=== PATIENT | male | born 1995 | race Caucasian/White ===

== ENCOUNTER 2017-12-13 19:24 | Emergency (ER) | payer OTHER ==
--- NOTE | 2017-12-13 19:37 | ER Report ---
History and Physical Time Seen By MD: 19:36 Hx. of Stated Complaint: patient having cough for the last days, fever, congestion. patient states coughing up blood tinged mucus. HPI/ROS CHIEF COMPLAINT: Cough, shortness breath HISTORY OF PRESENT ILLNESS: 22-year-old male patient presents to emergency room with complaint of cough and shortness of breath. Patient states that he has been having a cough for the past 10 days. He states that over the last 36 hours he's been coughing up blood-tinged mucus. He states that he is eating and drinking well, but states he's not been able to work out. He denies having fever but s tates he has had chills. He states he was lying in bed and was wearing sweats and was sweating profusely. He denies any abdominal pain, chest pain. He states that he is had a high heart rate for several weeks stating that he's been turned away from [facility] for having elevated heart rate. REVIEW OF SYSTEMS: Respiratory: As noted above Cardiovascular: No chest pain, no palpitations. Gastrointestinal: No vomiting, no abdominal pain. Musculoskeletal: No back pain. Allergies: Coded Allergies: No Known Drug Allergies (Unverified , 12/13/17) Home Meds Active Scripts Promethazine HCl/Codeine (Prometh-Codein 6.25-10 mg/5 ml) 5 Ml Syrup, 1 TSP PO QHS PRN for COUGH, #120 ML Prov:ELENITA MADISON [facility] 12/13/17 Azithromycin 250 Mg Tab (AZITHROMYCIN 250 MG TAB) 250 Mg Tablet, 1 TAB PO QDAY, #4 TAB Prov:ELENITA MADISON [facility] 12/13/17 Past Medical/Surgical History Patient has a past medical history of concussion, reflux, deviated septum. Patient has surgical history of a tear duct repair as a child. Reviewed Nurses Notes: Yes Constitutional Vital Sign - Last 24 Hours 12/13/17 12/13/17 12/13/17 12/13/17 19:27 19:30 19:39 19:54 Temp 99.5 Pulse 124 127 122 Resp 24 B/P (MAP) 152/91 111/84 (93) Pulse Ox 90 92 92 O2 Delivery Room Air 12/13/17 12/13/17 12/13/17 12/13/17 20:00 20:09 20:24 20:30 Pulse 101 102 B/P (MAP) 124/99 (107) 114/104 (107) Pulse Ox 90 91 12/13/17 12/13/17 12/13/17 12/13/17 20:39 20:44 20:59 21:00 Pulse 101 101 99 B/P (MAP) 125/81 (96) Pulse Ox 91 91 91 12/13/17 12/13/17 12/13/17 12/13/17 21:14 21:29 21:30 21:44 Pulse 99 99 118 B/P (MAP) 135/90 (105) Pulse Ox 92 92 94 Physical Exam General Appearance: The patient is alert, has no immediate need for airway protection and no current signs of toxicity. Respiratory: Chest is non tender, lungs are clear to auscultation. Cardiac: regular rhythm, patient is tachycardic. Gastrointestinal: Abdomen is soft and non tender, no masses, bowel sounds normal. Musculoskeletal: Neck: Neck is supple and non tender. Extremities have full range of motion and are non tender. Skin: No rashes or lesions. DIFFERENTIAL DIAGNOSIS: After history and physical exam differential diagnosis was considered for shortness of breath including but not limited to pulmonary infectious process, COPD, asthma, pulmonary embolus and congestive heart failure. Medical Decision Making Data Points Result Diagram: 12/13/17195612/13/171956 Laboratory Hematology Test 12/13/17 19:55 12/13/17 19:57 Influenza Virus Type A (PCR) Negative (NEGATIVE) Influenza Virus Type B (PCR) Negative (NEGATIVE) Red Blood Count 5.65 M/uL (4.00-5.60) Mean Corpuscular Volume 88.8 fL (80.0-96.0) Mean Corpuscular Hemoglobin 31.0 pg (26.0-33.0) Mean Corpuscular Hemoglobin Concent 34.9 g/dL (32.0-36.0) Red Cell Distribution Width 12.3 % (11.5-14.5) Mean Platelet Volume 8.4 fL (7.2-11.1) Neutrophils (%) (Auto) 71.2 % (39.4-72.5) Lymphocytes (%) (Auto) 17.0 % (17.6-49.6) Monocytes (%) (Auto) 10.5 % (4.1-12.4) Eosinophils (%) (Auto) 0.5 % (0.4-6.7) Basophils (%) (Auto) 0.8 % (0.3-1.4) Nucleated RBC Relative Count (auto) 0.1 /100WBC Neutrophils # (Auto) 9.0 K/uL (2.0-7.4) Lymphocytes # (Auto) 2.1 K/uL (1.3-3.6) Monocytes # (Auto) 1.3 K/uL (0.3-1.0) Eosinophils # (Auto) 0.1 K/uL (0.0-0.5) Basophils # (Auto) 0.1 K/uL (0.0-0.1) Nucleated RBC Absolute Count (auto) 0.02 K/uL D-Dimer Quantitative (PE/DVT) 0.61 ug/ml (0-0.50) Sodium Level 137 mmol/L (137-145) Potassium Level 4.2 mmol/L (3.5-5.0) Chloride Level 95 mmol/L (98-107) Carbon Dioxide Level 29 mmol/L (22-30) Blood Urea Nitrogen 14 mg/dl (9-21) Creatinine 1.10 mg/dl (0.66-1.25) Glomerular Filtration Rate Calc > 60.0 Random Glucose 105 mg/dl (75-110) Calcium Level 9.1 mg/dl (8.4-10.2) Total Bilirubin 1.0 mg/dl (0.2-1.3) Aspartate Amino Transf (AST/SGOT) 47 U/L (0-35) Alanine Aminotransferase (ALT/SGPT) 83 U/L (0-56) Alkaline Phosphatase 106 U/L (0-126) Total Protein 7.8 g/dl (6.3-8.2) Albumin 4.3 g/dl (3.5-5.0) Chemistry Test 12/13/17 19:55 12/13/17 19:57 Influenza Virus Type A (PCR) Negative (NEGATIVE) Influenza Virus Type B (PCR) Negative (NEGATIVE) White Blood Count 12.7 k/uL (4.5-11.0) Red Blood Count 5.65 M/uL (4.00-5.60) Hemoglobin 17.5 g/dL (14.0-18.0) Hematocrit 50.2 % (42.0-52.0) Mean Corpuscular Volume 88.8 fL (80.0-96.0) Mean Corpuscular Hemoglobin 31.0 pg (26.0-33.0) Mean Corpuscular Hemoglobin Concent 34.9 g/dL (32.0-36.0) Red Cell Distribution Width 12.3 % (11.5-14.5) Platelet Count 268 K/uL (150-450) Mean Platelet Volume 8.4 fL (7.2-11.1) Neutrophils (%) (Auto) 71.2 % (39.4-72.5) Lymphocytes (%) (Auto) 17.0 % (17.6-49.6) Monocytes (%) (Auto) 10.5 % (4.1-12.4) Eosinophils (%) (Auto) 0.5 % (0.4-6.7) Basophils (%) (Auto) 0.8 % (0.3-1.4) Nucleated RBC Relative Count (auto) 0.1 /100WBC Neutrophils # (Auto) 9.0 K/uL (2.0-7.4) Lymphocytes # (Auto) 2.1 K/uL (1.3-3.6) Monocytes # (Auto) 1.3 K/uL (0.3-1.0) Eosinophils # (Auto) 0.1 K/uL (0.0-0.5) Basophils # (Auto) 0.1 K/uL (0.0-0.1) Nucleated RBC Absolute Count (auto) 0.02 K/uL D-Dimer Quantitative (PE/DVT) 0.61 ug/ml (0-0.50) Glomerular Filtration Rate Calc > 60.0 Calcium Level 9.1 mg/dl (8.4-10.2) Total Bilirubin 1.0 mg/dl (0.2-1.3) Aspartate Amino Transf (AST/SGOT) 47 U/L (0-35) Alanine Aminotransferase (ALT/SGPT) 83 U/L (0-56) Alkaline Phosphatase 106 U/L (0-126) Total Protein 7.8 g/dl (6.3-8.2) Albumin 4.3 g/dl (3.5-5.0) Coagulation Test 12/13/17 19:57 D-Dimer Quantitative (PE/DVT) 0.61 ug/ml EKG/Imaging Imaging CT angiogram of the chest: Indication: Cough and dyspnea. Elevated d-dimer. Technique: Helical CT was performed through the chest following IV contrast enhancement with 75 cc of Isovue 370. Multiplanar reconstructions and MIP images are reviewed. One of the following dose optimization techniques was utilized in the per formance of this exam: Automated exposure control; adjustment of the mA and/or kV according to the patient's size; or use of an iterative reconstruction technique. Specific details can be referenced in the facility's radiology CT exam operational policy. Comparison: None. Pulmonary arteries: There is uniform contrast enhancement. There are no signs of pulmonary emboli. Aorta and great vessels: There is uniform contrast enhancement. There are no signs of dissection or aneurysm. Heart and pericardial soft tissues: Within normal limits. Mediastinal soft tissues: Unremarkable. Lung ahmadi: There is a small area of parenchymal consolidation in the left upper lobe, most likely representing acute pneumonia. No additional parenchymal opacities are identified. Pleural spaces: There is no evidence of effusion, focal pleural thickening, or pneumothorax. Skeletal structures: Well mineralized and intact. No acute skeletal deformity is identified. Upper abdomen: Unremarkable. IMPRESSION: There is a small area of consolidation in the left upper lobe, most likely representing acute pneumonia. The lungs are otherwise clear. There are no signs of pulmonary emboli. Report Dictated By: Lowell Ward MD at 12/13/2017 9:14 PM Report E-Signed By: Lowell Ward MD at 12/13/2017 9:25 PM Examination: CHEST PA AND LAT Comparison: None. History: Shortness of breath. Coughing up blood. Findings: Questionable small consolidation in the left suprahilar lung. No pneumothorax, edema, or effusion. Cardiac silhouette size is normal. Osseous structures are intact. IMPRESSION: Questionable small consolidation in the left suprahilar lung. Correlation with any evidence of a pneumonia is recommended. Report Dictated By: Richar Kirby MD at 12/13/2017 8:33 PM Report E-Signed By: Richar Kirby MD at 12/13/2017 8:36 PM ED Course/Re-evaluation ED Course Patient was admitted to exam room, history and physical were obtained. Differential diagnoses were considered. On examination lungs are clear, heart regular, abdomen is soft and nontender. A CBC, CMP, d-dimer were done. Patient had a white count of 12.7, there was no left shift. Patient did have a elevated d-dimer of 0.61. Chest x-ray was done which showed consolidation in the left upper lobe. Due to the elevated d-dimer a CT scan of the chest was done which did confirm the pneumonia in the left upper lobe. I discussed the results with the patient and his parents. I discussed treatment with azithromycin, albuterol inhaler, cough syrup to help him sleep tonight. He is to return to the emergency room if condition worsens. He is to follow-up with her primary care provider if condition persists. I discussed with patient who verbalized understanding and agreement with plan. Decision to Disposition Date: Dec 13, 2017 Decision to Disposition Time: 21:54 Depart Departure Latest Vital Signs Vital Signs Date Time Temp Pulse Resp B/P (MAP) Pulse Ox O2 Delivery O2 Flow Rate FiO2 12/13/17 21:44 118 94 12/13/17 21:30 135/90 (105) 12/13/17 19:27 99.5 24 Room Air Impression: Primary Impression: Community acquired bacterial pneumonia Condition: Improved Disposition: HOME OR SELF-CARE New Scripts Promethazine HCl/Codeine (Prometh-Codein 6.25-10 mg/5 ml) 5 Ml Syrup 1 TSP PO QHS PRN for COUGH, #120 ML Prov: ELENITA MADISON 12/13/17 Azithromycin 250 Mg Tab (AZITHROMYCIN 250 MG TAB) 250 Mg Tablet 1 TAB PO QDAY, #4 TAB Prov: ELENITA MADISON 12/13/17 Patient Instructions: Community Acquired Pneumonia (ED) Additional Instructions: Increase fluid intake. Get plenty of rest. Consider taking the next couple of days off of work. Return to the ER if condition worsens or you have no improvement in the next 48- 72 hours. Humidify the air that you have in your apartment. Take medication as prescribed. ELENITA MADISON Dec 13, 2017 19:37
[2017-12-13 20:09] LABS: PLATELET COUNT, AUTOMATED 268 K/uL (150-450)
--- NOTE | 2017-12-13 20:39 | RADIOLOGY IMAGING REPORT ---
FACILITY: [facility] PATIENT NAME: Noble Hassan : 1995 MR: [id number] V: [id number] EXAM DATE: ORDERING PHYSICIAN: ELENITA MADISON TECHNOLOGIST: Location: [facility] [place] Patient: Noble Hassan : 1995 Visit/Account:[id number] Date of Sevice: 12/13/2017 Examination: CHEST PA AND LAT Comparison: None. History: Shortness of breath. Coughing up blood. Findings: Questionable small consolidation in the left suprahilar lung. No pneumothorax, edema, or e ffusion. Cardiac silhouette size is normal. Osseous structures are intact. IMPRESSION: Questionable small consolidation in the left suprahilar lung. Correlation with any evidence of a pne umonia is recommended. Report Dictated By: Richar Kirby MD at 12/13/2017 8:33 PM Report E-Signed By: Richar Kirby MD at 12/13/2017 8:36 PM [id number]
[2017-12-13] MEDS ORDERED: NS(*) 0.9% 1000 ML BAG 1,000 ML IV ONE (20:50)
[2017-12-13] MEDS ORDERED: NS(*) 0.9% 50 ML BAG 50 ML ONE (20:51)
[2017-12-13] MEDS ORDERED: IOPAMIDOL 76% 75 ML INFUS BTL 75 ML ONE (20:51)
--- NOTE | 2017-12-13 21:30 | RADIOLOGY IMAGING REPORT ---
[facility] PATIENT NAME: Noble Hassan : 1995 MR: [id number] V: [id number] EXAM DATE: ORDERING PHYSICIAN: ELENITA MADISON TECHNOLOGIST: [place] [facility] [place] : 1995 Visit/Account:[id number] Date of Sevice: 12/13/2017 CT angiogram of the chest: Indication: Cough and dyspnea. Elevated d-dimer. Technique: Helical CT was performed through the chest following IV contrast enhancement with 75 cc of Isovue 370. Multiplanar reconstructions and MIP images are reviewed. One of the following dose optimization techniques was utilized in the performance of this exam: Autom ated exposure control; adjustment of the mA and/or kV according to the patient's size; or use of an i terative reconstruction technique. Specific details can be referenced in the facility's radiology CT exam operational policy. Comparison: None. Pulmonary arteries: There is uniform contrast enhancement. There are no signs of pulmonary emboli. Aorta and great vessels: There is uniform contrast enhancement. There are no signs of dissection or a neurysm. Heart and pericardial soft tissues: Within normal limits. Mediastinal soft tissues: Unremarkable. Lung ahmadi: There is a small area of parenchymal consolidation in the left upper lobe, most likely r epresenting acute pneumonia. No additional parenchymal opacities are identified. Pleural spaces: There is no evidence of effusion, focal pleural thickening, or pneumothorax. Skeletal structures: Well mineralized and intact. No acute skeletal deformity is identified. Upper abdomen: Unremarkable. IMPRESSION: There is a small area of consolidation in the left upper lobe, most likely representing a cute pneumonia. The lungs are otherwise clear. There are no signs of pulmonary emboli. Report Dictated By: Lowell Ward MD at 12/13/2017 9:14 PM Report E-Signed By: Lowell Ward MD at 12/13/2017 9:25 PM WSN:[id number]
[2017-12-13] MEDS ORDERED: AZIT-18 PO (21:51)
[2017-12-13] MEDS ORDERED: PROM5SYR PO (21:51)
[2017-12-13] MEDS ORDERED: ALBUTEROL 8 GM INHALER INH ONE (21:55)
[2017-12-13] MEDS ORDERED: AZITHROMYCIN 250 MG TAB PO ONE (21:55)
[2017-12-13] MEDS ORDERED: PROMETH/COD SYRP 6.25-10MG/5ML PO ONE (21:55)
[2017-12-13 22:00] VITALS: BP 132/79
== END 2017-12-13 22:20 | disposition home or self-care (01) ==
LOC: ER 19:44
DX: J15.9 Unspecified bacterial pneumonia (principal)
CPT/HCPCS: 85025; 85379; 87502; 96360; 99284; J3535; J7030; J7050; Q0144; Q9967; 71046; 71275; 82040; 82247; 82310; 82374; 82435; 82565; 82947; 84075; 84132; 84155; 84295; 84450; 84460; 84520

== ENCOUNTER 2017-12-18 12:56 | Emergency (ER) | payer OTHER ==
[~2017-12-18 12:56] MED LIST changes: -AMOX-559 PO; -FLU60VIA41 IM; -GUAI-206 PO
--- NOTE | 2017-12-18 13:31 | ER Report ---
History and Physical Time Seen By MD: 13:30 Hx. of Stated Complaint: PT DX WITH PNEUMONIA ON MONDAY, STILL NOT FEELING BETTER TODAY, NEW [place]OWN AND UNABLE TO GET ESTABLISHED WITH PCP HPI/ROS dignosed with pneumonia on mon, finished zpack and is no better fever chills sob Allergies: Coded Allergies: No Known Drug Allergies (Unverified , 12/18/17) Home Meds Discontinued Scripts Promethazine HCl/Codeine (Prometh-Codein 6.25-10 mg/5 ml) 5 Ml Syrup, 1 TSP PO QHS PRN for COUGH, #120 ML Prov:LOSELENITA FNP 12/13/17 Azithromycin 250 Mg Tab (AZITHROMYCIN 250 MG TAB) 250 Mg Tablet, 1 TAB PO QDAY, #4 TAB Prov:MARLO MADISONE IAP DISPLAYS ANALYST 12/13/17 Past Medical/Surgical History Negative 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 Resp 16 B/P (MAP) 145/80 (101) 12/18/17 12/18/17 12/18/17 12/18/17 14:18 14:30 14:45 14:56 Pulse 104 B/P (MAP) ???/??? (1665) 133/94 (107) 139/80 (99) Pulse Ox 92 12/18/17 12/18/17 12/18/17 12/18/17 15:00 15:15 15:20 15:30 Pulse ??? B/P (MAP) 126/82 (97) 128/84 (99) 117/80 (92) 10/2212/18/17 12/18/17 12/18/17 15:45 15:50 16:00 16:15 Pulse 99 B/P (MAP) 122/76 (91) 113/78 (90) 108/93 (98) Pulse Ox 92 12/18/17 12/18/17 12/18/17 12/18/17 16:20 16:30 16:45 16:50 Pulse 119 92 B/P (MAP) 130/96 (107) 123/83 (96) Pulse Ox 91 92 12/18/17 12/18/17 17:00 17:15 B/P (MAP) 125/79 (94) 130/85 (100) Physical Exam 22 year old male mild distress, head normocephalic and atraumatic , tm non reddened , throat slightly reddened, hr tachy no murmurs rubs and gallops, lungs crackles left upper lobe, abdomen soft, anguiano Medical Decision Making Data Points Result Diagram: 12/18/17 1401 12/18/17 1401 Laboratory Hematology Test 12/18/17 14:01 12/18/17 14:06 12/18/17 14:32 12/18/17 15:19 Red Blood Count 5.48 M/uL (4.00-5.60) Mean Corpuscular Volume 88.4 fL (80.0-96.0) Mean Corpuscular Hemoglobin 30.5 pg (26.0-33.0) Mean Corpuscular Hemoglobin Concent 34.5 g/dL (32.0-36.0) Red Cell Distribution Width 12.1 % (11.5-14.5) Mean Platelet Volume 7.9 fL (7.2-11.1) Neutrophils (%) (Auto) 77.0 % (39.4-72.5) Lymphocytes (%) (Auto) 12.7 % (17.6-49.6) Monocytes (%) (Auto) 9.6 % (4.1-12.4) Eosinophils (%) (Auto) 0.1 % (0.4-6.7) Basophils (%) (Auto) 0.6 % (0.3-1.4) Nucleated RBC Relative Count (auto) 0.0 /100WBC Neutrophils # (Auto) 9.9 K/uL (2.0-7.4) Lymphocytes # (Auto) 1.6 K/uL (1.3-3.6) Monocytes # (Auto) 1.2 K/uL (0.3-1.0) Eosinophils # (Auto) 0.0 K/uL (0.0-0.5) Basophils # (Auto) 0.1 K/uL (0.0-0.1) Nucleated RBC Absolute Count (auto) 0.01 K/uL D-Dimer Quantitative (PE/DVT) 1.44 ug/ml (0-0.50) Sodium Level 136 mmol/L (137-145) Potassium Level 3.9 mmol/L (3.5-5.0) Chloride Level 98 mmol/L (98-107) Carbon Dioxide Level 23 mmol/L (22-30) Blood Urea Nitrogen 11 mg/dl (9-21) Creatinine 1.10 mg/dl (0.66-1.25) Glomerular Filtration Rate Calc > 60.0 Random Glucose 98 mg/dl (75-110) Lactate 1.5 mmol/L (0.7-2.1) Calcium Level 9.3 mg/dl (8.4-10.2) Total Bilirubin 1.6 mg/dl (0.2-1.3) Aspartate Amino Transf (AST/SGOT) 31 U/L (0-35) Alanine Aminotransferase (ALT/SGPT) 90 U/L (0-56) Alkaline Phosphatase 128 U/L (0-126) Troponin I < 0.012 ng/ml Total Protein 6.8 g/dl (6.3-8.2) Albumin 3.7 g/dl (3.5-5.0) Monoscreen Negative (NEGATIVE) Influenza Virus Type A (PCR) Negative (NEGATIVE) Influenza Virus Type B (PCR) Negative (NEGATIVE) Group A Streptococcus Screen Negative (NEGATIVE) Blood Gas Patient Temperature Unknown DEGREES Venous Blood pH 7.41 (7.31-7.41) Venous Blood Partial Pressure CO2 35 mmHg Venous Blood Partial Pressure O2 54 mmHg Venous Blood HCO3 22 mmol/L Venous Blood Oxygen Saturation 88 % Venous Blood Base Excess -2 mmol/L Oxygen Liters/Minute Unknown Urine Color Straw Urine Clarity Clear Urine pH 6.0 pH (4.8-9.5) Urine Specific [place] 1.001 Urine Protein Negative mg/dL (NEGATIVE) Urine Glucose (UA) Negative mg/dL (NEGATIVE) Urine Ketones Negative mg/dL (NEGATIVE) Urine Blood Large (NEGATIVE) Urine Nitrite Negative (NEGATIVE) Urine Bilirubin Negative (NEGATIVE) Urine Urobilinogen Negative mg/dL (0.2-1.9) Urine Leukocyte Esterase Negative (NEGATIVE) Urine RBC 13 /HPF (0-2/HPF) Urine WBC 2 /HPF (0-5/HPF) Urine Squamous Epithelial Cells Few /LPF (</=FEW) Urine Bacteria Few /HPF (NONE-FEW) Urine Mucus None /HPF (NONE-FEW) Chemistry Test 12/18/17 14:01 12/18/17 14:06 12/18/17 14:32 12/18/17 15:19 White Blood Count 12.8 k/uL (4.5-11.0) Red Blood Count 5.48 M/uL (4.00-5.60) Hemoglobin 16.7 g/dL (14.0-18.0) Hematocrit 48.4 % (42.0-52.0) Mean Corpuscular Volume 88.4 fL (80.0-96.0) Mean Corpuscular Hemoglobin 30.5 pg (26.0-33.0) Mean Corpuscular Hemoglobin Concent 34.5 g/dL (32.0-36.0) Red Cell Distribution Width 12.1 % (11.5-14.5) Platelet Count 293 K/uL (150-450) Mean Platelet Volume 7.9 fL (7.2-11.1) Neutrophils (%) (Auto) 77.0 % (39.4-72.5) Lymphocytes (%) (Auto) 12.7 % (17.6-49.6) Monocytes (%) (Auto) 9.6 % (4.1-12.4) Eosinophils (%) (Auto) 0.1 % (0.4-6.7) Basophils (%) (Auto) 0.6 % (0.3-1.4) Nucleated RBC Relative Count (auto) 0.0 /100WBC Neutrophils # (Auto) 9.9 K/uL (2.0-7.4) Lymphocytes # (Auto) 1.6 K/uL (1.3-3.6) Monocytes # (Auto) 1.2 K/uL (0.3-1.0) Eosinophils # (Auto) 0.0 K/uL (0.0-0.5) Basophils # (Auto) 0.1 K/uL (0.0-0.1) Nucleated RBC Absolute Count (auto) 0.01 K/uL D-Dimer Quantitative (PE/DVT) 1.44 ug/ml (0-0.50) Glomerular Filtration Rate Calc > 60.0 Lactate 1.5 mmol/L (0.7-2.1) Calcium Level 9.3 mg/dl (8.4-10.2) Total Bilirubin 1.6 mg/dl (0.2-1.3) Aspartate Amino Transf (AST/SGOT) 31 U/L (0-35) Alanine Aminotransferase (ALT/SGPT) 90 U/L (0-56) Alkaline Phosphatase 128 U/L (0-126) Troponin I < 0.012 ng/ml Total Protein 6.8 g/dl (6.3-8.2) Albumin 3.7 g/dl (3.5-5.0) Monoscreen Negative (NEGATIVE) Influenza Virus Type A (PCR) Negative (NEGATIVE) Influenza Virus Type B (PCR) Negative (NEGATIVE) Group A Streptococcus Screen Negative (NEGATIVE) Blood Gas Patient Temperature Unknown DEGREES Venous Blood pH 7.41 (7.31-7.41) Venous Blood Partial Pressure CO2 35 mmHg Venous Blood Partial Pressure O2 54 mmHg Venous Blood HCO3 22 mmol/L Venous Blood Oxygen Saturation 88 % Venous Blood Base Excess -2 mmol/L Oxygen Liters/Minute Unknown Urine Color Straw Urine Clarity Clear Urine pH 6.0 pH (4.8-9.5) Urine Specific [place] 1.001 Urine Protein Negative mg/dL (NEGATIVE) Urine Glucose (UA) Negative mg/dL (NEGATIVE) Urine Ketones Negative mg/dL (NEGATIVE) Urine Blood Large (NEGATIVE) Urine Nitrite Negative (NEGATIVE) Urine Bilirubin Negative (NEGATIVE) Urine Urobilinogen Negative mg/dL (0.2-1.9) Urine Leukocyte Esterase Negative (NEGATIVE) Urine RBC 13 /HPF (0-2/HPF) Urine WBC 2 /HPF (0-5/HPF) Urine Squamous Epithelial Cells Few /LPF (</=FEW) Urine Bacteria Few /HPF (NONE-FEW) Urine Mucus None /HPF (NONE-FEW) Coagulation Test 12/18/17 14:01 D-Dimer Quantitative (PE/DVT) 1.44 ug/ml Urinalysis Test 12/18/17 15:19 Urine Color Straw Urine Clarity Clear Urine pH 6.0 pH (4.8-9.5) Urine Specific [place] 1.001 Urine Protein Negative mg/dL (NEGATIVE) Urine Glucose (UA) Negative mg/dL (NEGATIVE) Urine Ketones Negative mg/dL (NEGATIVE) Urine Blood Large (NEGATIVE) Urine Nitrite Negative (NEGATIVE) Urine Bilirubin Negative (NEGATIVE) Urine Urobilinogen Negative mg/dL (0.2-1.9) Urine Leukocyte Esterase Negative (NEGATIVE) Urine RBC 13 /HPF (0-2/HPF) Urine WBC 2 /HPF (0-5/HPF) Urine Squamous Epithelial Cells Few /LPF (</=FEW) Urine Bacteria Few /HPF (NONE-FEW) Urine Mucus None /HPF (NONE-FEW) EKG/Imaging EKG Interpretation EKG 1348 sinus tach ventricular rate 114 QTCs 427 Monitor Interpretation: Sinus Tachycardia Imaging [place] [facility] [place]IENT NAME: Noble Hassan : 1995 MR: [id number] V: [id number] EXAM DATE: ORDERING PHYSICIAN: CLARISA GABRIEL TECHNOLOGIST: Location: [facility] Patient: Noble Hassan : 1995 Visit/Account:[id number] Date of Sevice: 12/18/2017 EXAMINATION: CTA of the chest with IV contrast HISTORY: Shortness of breath. Tachycardia. Pneumonia. TECHNIQUE: Pulmonary embolus protocol - Thin axial CT images of the chest were obtained with IV contrast during maximal pulmonary arterial opacification. Reconstruction of the source data includes multiplanar 2D coronal and sagittal reconstructed images, and 3D coronal and sagittal MIP images. Varitypist images have been stored on PACS. One of the following dose optimization techniques was utilized in the perf ormance of this exam: Automated exposure control; adjustment of the mA and/or kV according to the patient's size; or use of an iterative reconstruction technique. Specific details can be referenced in the facility's radiology CT exam operational policy. Contrast: 75 mL of IV Isovue-370. COMPARISON: 12/13/2017. FINDINGS: Pulmonary arteries: The pulmonary arteries are well opacified, without suspicious filling defect. Heart, aorta, and great vessels: Normal caliber thoracic aorta, without aneurysm or dissection. Normal heart size. No pericardial effusion. Lungs and pleura: Focal consolidation in the central aspect of the left upper lobe has progressed and now demonstrates a central cavitary component with a fluid level, compatible with pulmonary abscess formation. The region of consolidation overall measures approximately 3.6 x 4.0 x 2.7 cm, previously 2.1 x 2.1 x 1.4 cm. The central air cavity measures up to 2 cm in diameter. On the prior exam there was a much smaller 3 mm focus of central air lucency. There is additional patchy infiltrate in the surrounding left upper lobe with associated bronchial thickening. No additional focal consolidation in either lung. The left lower lobe and right lung are clear. The central airways are patent. No pleural effusion or pn eumothorax. Mediastinum and hilario: Negative. Visualized upper abdomen: Unremarkable. Chest wall: Negative. Bones: Negative. IMPRESSION: 1. No evidence of pulmonary embolism. 2. Progressive consolidation in the left upper lobe with a prominent central cavitary component on today's exam, most compatible with a complicated pneumonia with lung abscess. There is some surrounding patchy infiltrate in the left upper lobe. Underlying malignancy is considered unlikely but follow-up imaging should be performed to document resolution. 3. The left lower lobe and right lung are clear. No other new findings in the chest. Report Dictated By: Maxwell Colmenares MD at 12/18/2017 3:47 PM Report E-Signed By: Maxwell Colmenares MD at 12/18/2017 4:01 PM WSN:[id number]: [facility] [place] NAME: Noble Hassan : 1995 MR: [id number] V: [id number] EXAM DATE: [id number] ORDERING PHYSICIAN: CLARISA GABRIEL TECHNOLOGIST: Location: [facility] Patient: Noble Hassan : 1995 Visit/Account:[id number] Date of Sevice: 12/18/2017 EXAMINATION: CTA of the chest with IV contrast HISTORY: Shortness of breath. Tachycardia. Pneumonia. TECHNIQUE: Pulmonary embolus protocol - Thin axial CT images of the chest were obtained with IV contrast during maximal pulmonary arterial opacification. Reconstruction of the source data includes multiplanar 2D coronal and sagittal reconstructed images, and 3D coronal and sagittal MIP images. Varitypist images have been stored on PACS. One of the following dose optimization techniques was utilized in the performance of this exam: Automated exposure control; adjustment of the mA and/or kV according to the patient's size; or use of an iterative reconstruction technique. Specific details can be referenced in the facility's radiology CT exam operational policy. Contrast: 75 mL of IV Isovue-370. COMPARISON: 12/13/2017. FINDINGS: Pulmonary arteries: The pulmonary arteries are well opacified, without suspicious filling defect. Heart, aorta, and great vessels: Normal caliber thoracic aorta, without aneurysm or dissection. Normal heart size. No pericardial effusion. Lungs and pleura: Focal consolidation in the central aspect of the left upper lobe has progressed and now demonstrates a central cavitary component with a fluid level, compatible with pulmonary abscess formation. The region of consolidation overall measures approximately 3.6 x 4.0 x 2.7 cm, previously 2.1 x 2.1 x 1.4 cm. The central air cavity measures up to 2 cm in diameter. On the prior exam there was a much smaller 3 mm focus of central air lucency. There is additional patchy infiltrate in the surrounding left upper lobe with associated bronchial thickening. No additional focal consolidation in either lung. The left lower lobe and right lung are clear. The central airways are patent. No pleural effusion or pneumothorax. Mediastinum and hilario: Negative. Visualized upper abdomen: Unremarkable. Chest wall: Negative. Bones: Negative. IMPRESSION: 1. No evidence of pulmonary embolism. 2. Progressive consolidation in the left upper lobe with a prominent central cavitary component on today's exam, most compatible with a complicated pneumonia with lung abscess. There is some surrounding patchy infiltrate in the left upper lobe. Underlying malignancy is considered unlikely but follow-up imaging should be performed to document resolution. 3. The left lower lobe and right lung are clear. No other new findings in the chest. Report Dictated By: Maxwell Colmenares MD at 12/18/2017 3:47 PM Report E-Signed By: Maxwell Colmenares MD at 12/18/2017 4:01 PM WSN:[id number] ED Course/Re-evaluation Clinical Indication for ER IV: Hydration ED Course IV fluids were initiated in the emergency room patient received a DuoNeb treatment heart rate initially 1:30 did receive a liter of IV fluids heart rate down to 116 on his white blood cell count is 12.8 notices LFTs are slightly elevated with T bili at 1.6 a LT 90 and alkaline phosphatase 128 troponin was negative blood cultures were drawn d-dimer was positive did do a CTA chest showing a consolidation in the left upper lobe with abscess did talk to hospitalist Dr. Kirk Woodall will transfer this patient to [facility] where they have ID and pulmonology Re-evaluation sats 94 on room air antibiotics zosyn and vancomycin given . to [facility] per ambulance Decision to Disposition Date: Dec 18, 2017 Decision to Disposition Time: 17:02 Critical Care Time Discussed the patient with Dr. Rosales at [facility] he agrees to take the patient will transfer him by ambulance will start antibiotics vancomycin and Zosyn prior to transport blood cultures have been obtained Transfer Facility [facility] Depart Departure Latest Vital Signs Vital Signs Date Time Temp Pulse Resp B/P (MAP) Pulse Ox O2 Delivery O2 Flow Rate FiO2 12/18/17 17:15 130/85 (100) 12/18/17 16:50 92 92 12/18/17 13:52 16 12/18/17 13:04 100.4 Room Air Impression: Primary Impression: Community acquired bacterial pneumonia Additional Impression: Abscess of lung Condition: Condition Unchanged Disposition: XFER TO [facility] New Scripts No Active Prescriptions or Reported Meds Patient Instructions: Community Acquired Pneumonia (ED), Lung Abscess (GEN) Cap Core Measurers: Blood Cult prior to Abx Problem Qualifiers CLARISA GABRIEL Dec 18, 2017 13:31
[2017-12-18] MEDS ORDERED: NS(*) 0.9% 1000 ML BAG 1,000 ML IV ONE (13:37)
[2017-12-18] MEDS ORDERED: ALBUTEROL/IPRATROPIUM 3 ML NEB NEB ONE (13:40)
[2017-12-18 14:15] LABS: PLATELET COUNT, AUTOMATED 293 K/uL (150-450)
--- NOTE | 2017-12-18 14:49 | RADIOLOGY IMAGING REPORT ---
FACILITY: [facility] - [place] PATIENT NAME: Noble Hassan : 1995 MR: [id number] V: [id number] EXAM DATE: ORDERING PHYSICIAN: CLARISA GABRIEL TECHNOLOGIST: Location: [facility] - [place] Patient: Noble Hassan : 1995 Visit/Account:[id number] Date of Sevice: 12/18/2017 CHEST PA AND LAT History: FEVER FINDINGS: Comparison studies: Comparison chest x-ray chest CT 12/13/2017 Tubes and Lines: None. Lungs and pleura: There is a 4 cm diameter area of consolidation left upper lobe with central cavit ation measuring 2 cm with an air-fluid level seen. This is progressed since the previous examination . Lungs otherwise well-aerated and unremarkable. Mediastinum: normal. Cardiac silhouette: normal . Osseous structures: Unremarkable for age . IMPRESSION: Left upper lobe pulmonary abscess appears slightly worse. A cavitary malignancy should only be con sidered if patient has a known history of cancer.. This should be followed to resolution Report Dictated By: Kan Ortez MD at 12/18/2017 2:39 PM Report E-Signed By: Kan Ortez MD at 12/18/2017 2:43 PM WSN:[id number]
[2017-12-18] MEDS ORDERED: diphenhydrAMINE 50 MG/ML VIAL IVP ONE (14:50)
[2017-12-18] MEDS ORDERED: ONDANSETRON 4 MG/2 ML VIAL IVP ONE (14:50)
[2017-12-18] MEDS ORDERED: IOPAMIDOL 76% 75 ML INFUS BTL 75 ML ONE (15:06)
[2017-12-18] MEDS ORDERED: NS(*) 0.9% 50 ML BAG 50 ML ONE (15:06)
--- NOTE | 2017-12-18 15:49 | EKG ---
FACILITY: [facility] PATIENT NAME: MARY PHELAN : [id number] MR: [id number] V: [id number] EXAM DATE: ORDERING PHYSICIAN: CLARISA GABRIEL TECHNOLOGIST: LYNNE Test Reason : PNEMONIA Blood Pressure : / mmHG Vent. Rate : 114 BPM Atrial Rate : 114 BPM P-R Int : 142 ms QRS Dur : 092 ms QT Int : 310 ms P-R-T Axes : 050 085 001 degrees QTc Int : 427 ms Sinus tachycardia Otherwise normal ECG No previous ECGs available Confirmed by AARTI HERNANDEZ ([id number]) on 12/18/2017 7:43:51 PM Referred By: FINN Confirmed By:AARTI HERNANDEZ
--- NOTE | 2017-12-18 16:05 | RADIOLOGY IMAGING REPORT ---
FACILITY: [facility] PATIENT NAME: Noble Hassan : 1995 MR: [id number] V: [id number] EXAM DATE: ORDERING PHYSICIAN: CLARISA GABRIEL TECHNOLOGIST: Location: [facility] - [place] Patient: Noble Hassan : 1995 Visit/Account:[id number] Date of Sevice: 12/18/2017 EXAMINATION: CTA of the chest with IV contrast HISTORY: Shortness of breath. Tachycardia. Pneumonia. TECHNIQUE: Pulmonary embolus protocol - Thin axial CT images of the chest were obtained with IV con trast during maximal pulmonary arterial opacification. Reconstruction of the source data includes mul tiplanar 2D coronal and sagittal reconstructed images, and 3D coronal and sagittal MIP images. Repres entative images have been stored on PACS. One of the following dose optimization techniques was utilized in the performance of this exam: Autom ated exposure control; adjustment of the mA and/or kV according to the patient's size; or use of an i terative reconstruction technique. Specific details can be referenced in the facility's radiology C T exam operational policy. Contrast: 75 mL of IV Isovue-370. COMPARISON: 12/13/2017. FINDINGS: Pulmonary arteries: The pulmonary arteries are well opacified, without suspicious filling defect. Heart, aorta, and great vessels: Normal caliber thoracic aorta, without aneurysm or dissection. Norm al heart size. No pericardial effusion. Lungs and pleura: Focal consolidation in the central aspect of the left upper lobe has progressed an d now demonstrates a central cavitary component with a fluid level, compatible with pulmonary abscess formation. The region of consolidation overall measures approximately 3.6 x 4.0 x 2.7 cm, previously 2.1 x 2.1 x 1.4 cm. The central air cavity measures up to 2 cm in diameter. On the prior exam there was a much smaller 3 mm focus of central air lucency. There is additional patchy infiltrate in the curtis rrounding left upper lobe with associated bronchial thickening. No additional focal consolidation in either lung. The left lower lobe and right lung are clear. The c entral airways are patent. No pleural effusion or pneumothorax. Mediastinum and hilario: Negative. Visualized upper abdomen: Unremarkable. Chest wall: Negative. Bones: Negative. IMPRESSION: 1. No evidence of pulmonary embolism. 2. Progressive consolidation in the left upper lobe with a prominent central cavitary component on to day's exam, most compatible with a complicated pneumonia with lung abscess. There is some surrounding patchy infiltrate in the left upper lobe. Underlying malignancy is considered unlikely but follow-up imaging should be performed to document resolution. 3. The left lower lobe and right lung are clear. No other new findings in the chest. Report Dictated By: Maxwell Colmenares MD at 12/18/2017 3:47 PM Report E-Signed By: Maxwell Colmenares MD at 12/18/2017 4:01 PM WSN:[id number]
[2017-12-18] MEDS ORDERED: PIPERACILLIN/TAZO*3.375GM VIAL 3.375 GM in NS(*) 0.9% 100 ML ADDVANT BAG 100 ML IVPB ONE (17:00)
[2017-12-18] MEDS ORDERED: VANCOMYCIN 1 GM ADDVIAL 1 GM in NS(*) 0.9% 250 ML ADDVAN BAG 250 ML IVPB ONE (17:00)
[2017-12-18 17:15] VITALS: BP 130/85
[2017-12-26] MEDS ORDERED: GUAI-206 PO (10:25)
[2017-12-26] MEDS ORDERED: AMOX-559 PO (10:25)
[2017-12-26] MEDS ORDERED: FLU60VIA41 IM (11:20)
== END 2017-12-18 18:12 | disposition short-term general hospital (02) ==
LOC: ER 13:44
DX: J15.9 Unspecified bacterial pneumonia (principal); B96.89 Other specified bacterial agents as the cause of diseases classified elsewhere; J85.1 Abscess of lung with pneumonia
CPT/HCPCS: 71046; 71275; 81001; 82803; 83605; 84484; 85025; 85379; 86308; 87040; 87081; 87502; 87880; 93005; 94640; 96365; 96367; 96375; 99285; J1200; J2405; J2543; J3370; J7030; J7050; J7620; Q9967; 82040; 82247; 82310; 82374; 82435; 82565; 82947; 84075; 84132; 84155; 84295; 84450; 84460; 84520

== ENCOUNTER → 2017-12-18 | Outpatient (CLI) | payer OTHER ==
[~2017-12-18] MED LIST: AMOX-559 PO; AZIT-18 PO; FLU60VIA41 IM; GUAI-206 PO; PROM5SYR PO
== END ==
LOC: AMB 17:53
PROVIDERS: ATTEND Nurse Practitioner
DX: J85.1 Abscess of lung with pneumonia (principal)
CPT/HCPCS: A0425; A0426

== ENCOUNTER 2018-06-05 11:39 | Emergency (ER) | payer OTHER ==
[~2018-06-05 11:39] MED LIST changes: +AMOX-559 PO; +ESC10 PO; +FLU60VIA41 IM; +GUAI-206 PO
--- NOTE | 2018-06-05 11:49 | ER Report ---
History and Physical Time Seen By MD: 11:49 Hx. of Stated Complaint: PT REPORTS PAIN/DIFFICULT URINATION SINCE YESTERDAY HPI/ROS CHIEF COMPLAINT: Difficulty with urination HISTORY OF PRESENT ILLNESS: 22-year-old male patient presents to emergency room with complaint of difficulties with urination. Patient states he's been having significant amounts of pain with urination. Patient states this started yesterday. Patient states he is sexually active, horizontal been sexually active since the end of March. He denies any current partners. He states when he is with his partner that they use condoms 100% of time. Patient denies any fevers, chills, nausea, vomiting or diarrhea. Patient states he is not taking any medication for this. Patient states he does feel like he has to urinate, and states he was unable to sleep last night because of discomfort. REVIEW OF SYSTEMS: Respiratory: No cough, no dyspnea. Cardiovascular: No chest pain, no palpitations. Gastrointestinal: No vomiting, no abdominal pain. Musculoskeletal: No back pain. Allergies: Coded Allergies: No Known Drug Allergies (Unverified , 06/05/18) Home Meds Active Scripts Phenazopyridine Hcl (PHENAZOPYRIDINE HCL) 200 Mg Tablet, 200 MG PO TID, #15 TAB Prov:ELENITA MADISON 06/05/18 Sulfamethoxazole/Trimet 800-160 Mg Tab (BACTRIM DS TABLET) 1 Each Tablet, 1 TAB PO Q12H, #14 TAB Prov:ELENITA MADISON 06/05/18 Discontinued Reported Medications Guaifenesin (GUAIFENESIN) 100 Mg/5 Ml Liquid, 5-10 MG PO Q4H PRN for cough 12/26/17 Amoxicillin/Pot Clav 875-125 Mg Tab (AUGMENTIN 875-125 TABLET) 1 Each Tablet, 1 TAB PO Q12H, TAB 12/26/17 Discontinued Scripts Escitalopram Oxalate (LEXAPRO) 10 Mg Tab, 0.5-1 TAB PO QDAY, #30 TAB 1 Refill Start with 1/2 tablet daily X 7 days, then increase to 1 tablet daily. Prov:STUART PHAM MD 01/02/18 Past Medical/Surgical History Patient has a past medical history of concussions, reflux. Patient has surgery on his tear duct as a child. Reviewed Nurses Notes: Yes Hx Smoking: No Smoking Status: Current: Some Days Smoker Exposure to Second Hand Smoke?: No Hx Substance Use Disorder: No Hx Alcohol Use: No Constitutional Vital Sign - Last 24 Hours 06/05/18 06/05/18 11:40 13:25 Temp 98.6 Pulse 92 83 Resp 16 16 B/P (MAP) 152/77 130/60 (83) Pulse Ox 92 93 O2 Delivery Room Air Room Air Physical Exam General Appearance: The patient is alert, has no immediate need for airway protection and no current signs of toxicity. Respiratory: Chest is non tender, lungs are clear to auscultation. Cardiac: regular rate and rhythm Gastrointestinal: Abdomen is soft and tender in the suprapubic region, no masses, bowel sounds normal. Musculoskeletal: Neck: Neck is supple and non tender. Extremities have full range of motion and are non tender. Skin: No rashes or lesions. DIFFERENTIAL DIAGNOSIS: After history and physical exam differential diagnosis was considered for STI, urinary tract infection, dysuria. Medical Decision Making Data Points Laboratory Hematology Test 06/05/18 11:50 06/05/18 12:58 Urine Color Donna Urine Clarity Turbid Urine pH 6.0 pH (4.8-9.5) Urine Specific [place] 1.023 Urine Protein 30 mg/dL (NEGATIVE) Urine Glucose (UA) Negative mg/dL (NEGATIVE) Urine Ketones Negative mg/dL (NEGATIVE) Urine Blood Small (NEGATIVE) Urine Nitrite Negative (NEGATIVE) Urine Bilirubin Negative (NEGATIVE) Urine Urobilinogen 0.2 mg/dL (0.2-1.9) Urine Leukocyte Esterase Trace (NEGATIVE) Urine RBC 20 /HPF (0-2/HPF) Urine WBC 16 /HPF (0-5/HPF) Urine Squamous Epithelial Cells None /LPF (</=FEW) Urine Calcium Oxalate Crystals Few /HPF (NONE) Urine Amorphous Crystals Many /HPF Urine Bacteria Negative /HPF (NONE-FEW) Urine Mucus Few /HPF (NONE-FEW) Chemistry Test 06/05/18 11:50 06/05/18 12:58 Urine Color Donna Urine Clarity Turbid Urine pH 6.0 pH (4.8-9.5) Urine Specific [place] 1.023 Urine Protein 30 mg/dL (NEGATIVE) Urine Glucose (UA) Negative mg/dL (NEGATIVE) Urine Ketones Negative mg/dL (NEGATIVE) Urine Blood Small (NEGATIVE) Urine Nitrite Negative (NEGATIVE) Urine Bilirubin Negative (NEGATIVE) Urine Urobilinogen 0.2 mg/dL (0.2-1.9) Urine Leukocyte Esterase Trace (NEGATIVE) Urine RBC 20 /HPF (0-2/HPF) Urine WBC 16 /HPF (0-5/HPF) Urine Squamous Epithelial Cells None /LPF (</=FEW) Urine Calcium Oxalate Crystals Few /HPF (NONE) Urine Amorphous Crystals Many /HPF Urine Bacteria Negative /HPF (NONE-FEW) Urine Mucus Few /HPF (NONE-FEW) Urinalysis Test 06/05/18 11:50 Urine Color Donna Urine Clarity Turbid Urine pH 6.0 pH (4.8-9.5) Urine Specific [place] 1.023 Urine Protein 30 mg/dL (NEGATIVE) Urine Glucose (UA) Negative mg/dL (NEGATIVE) Urine Ketones Negative mg/dL (NEGATIVE) Urine Blood Small (NEGATIVE) Urine Nitrite Negative (NEGATIVE) Urine Bilirubin Negative (NEGATIVE) Urine Urobilinogen 0.2 mg/dL (0.2-1.9) Urine Leukocyte Esterase Trace (NEGATIVE) Urine RBC 20 /HPF (0-2/HPF) Urine WBC 16 /HPF (0-5/HPF) Urine Squamous Epithelial Cells None /LPF (</=FEW) Urine Calcium Oxalate Crystals Few /HPF (NONE) Urine Amorphous Crystals Many /HPF Urine Bacteria Negative /HPF (NONE-FEW) Urine Mucus Few /HPF (NONE-FEW) ED Course/Re-evaluation ED Course Patient was admitted to an exam room, history and physical were obtained. Differential diagnoses were considered. On examination lungs are clear, heart is regular, abdomen was soft and tender over the suprapubic region. Urinalysis was obtained. It did show 16 white blood cells and blood. Also had calcium oxalate crystals. With the white count and leukocyte esterase a urine culture was ordered. We also were able to get a urine sample for a GC and chlamydia. We will contact him with the results of their positive. Patient was treated with 250 mg of Rocephin as well as 1 g of azithromycin. We will also treat his urinary tract infection with Bactrim DS one tab by mouth twice a day 7 days. I discussed this with the patient who verbalized understanding and agreement with plan. Decision to Disposition Date: Jun 05, 2018 Decision to Disposition Time: 13:11 Depart Departure Latest Vital Signs Vital Signs Date Time Temp Pulse Resp B/P (MAP) Pulse Ox O2 Delivery O2 Flow Rate FiO2 06/05/18 13:25 83 16 130/60 (83) 93 Room Air 06/05/18 11:40 98.6 Impression: Primary Impression: UTI (urinary tract infection) Condition: Improved Disposition: HOME OR SELF-CARE New Scripts Phenazopyridine Hcl (PHENAZOPYRIDINE HCL) 200 Mg Tablet 200 MG PO TID, #15 TAB Prov: ELENITA MADISON 06/05/18 Sulfamethoxazole/Trimet 800-160 Mg Tab (BACTRIM DS TABLET) 1 Each Tablet 1 TAB PO Q12H, #14 TAB Prov: ELENITA MADISON 06/05/18 Patient Instructions: Urinary Tract Infection in Men (ED) Additional Instructions: Increase fluid intake. Get plenty of rest. Follow up with your primary care provider in 1 week to recheck your urine. Take the medication as prescribed. Return to the ER if condition worsens. Problem Qualifiers Primary Impression: UTI (urinary tract infection) Urinary tract infection type: acute cystitis Hematuria presence: with hematuria Qualified Codes: N30.01 - Acute cystitis with hematuria ELENITA MADISON Jun 05, 2018 11:49
[2018-06-05] MEDS ORDERED: SULF-198 PO (13:09)
[2018-06-05] MEDS ORDERED: PHEN200T32 PO (13:09)
[2018-06-05] MEDS ORDERED: cefTRIAXone 250 MG VIAL IM ONE (13:10)
[2018-06-05] MEDS ORDERED: AZITHROMYCIN 250 MG TAB PO ONE (13:10)
[2018-06-05] MEDS ORDERED: PHENAZOPYRIDINE 200 MG TAB PO ONE (13:10)
[2018-06-05 13:25] VITALS: BP 130/60
== END 2018-06-05 13:30 | disposition home or self-care (01) ==
LOC: ER 11:41
DX: N30.01 Acute cystitis with hematuria (principal)
CPT/HCPCS: 81001; 87088; 87491; 87591; 96372; 99283; J0696; Q0144